=== PATIENT | female | born 1985 | race Caucasian/White ===

== ENCOUNTER 2018-06-15 01:27 | Emergency (ER) | payer SELFPAY ==
[~2018-06-15] VITALS: Ht 170.2 cm; Wt 72.6 kg
[2018-06-15 01:49] VITALS: Ht 170.2 cm; Wt 72.6 kg
[2018-06-15 06:40] LABS: BASOPHIL % 0.5 % (0-2); PLATELET COUNT 172 x10^3mcL (130-400); RED CELL DISTRIBUTION WIDTH 12.9 % (11.5-14.5)
[2018-06-15 06:56] LABS: CARBON DIOXIDE 26.4 mmol/L (21-32); CHLORIDE SERUM 102 mmol/L (98-107); CREATININE SERUM 0.5 mg/dL (0.6-1.0); GFR1 > 60 mL/min; GLUCOSE SERUM 90 mg/dL (74-106); POTASSIUM SERUM 4.1 mmol/L (3.5-5.1); SODIUM SERUM 137 mmol/L (136-145)
[2018-06-15 07:01] LABS: ALBUMIN 3.2 g/dL (3.4-5.0); ALKALINE PHOSPHATASE 72 U/L (46-116); ALT/SGPT 18 U/L (14-59); AMYLASE 66 U/L (25-115); AST/SGOT 12 U/L (15-37); BILIRUBIN TOTAL 0.3 mg/dL (0.20-1.00); LIPASE 76 IU/L (73-393); TOTAL PROTEIN, SERUM 7.1 g/dL (6.4-8.2)
[2018-06-15 08:29] VITALS: BP 94/54
== END 2018-06-15 08:29 | disposition home or self-care (01) ==
LOC: ED 01:27
PROVIDERS: Specialist
DX: O26.891 Other specified pregnancy related conditions, first trimester (principal); R10.30 Lower abdominal pain, unspecified; R10.2 Pelvic and perineal pain; Z90.89 Acquired absence of other organs
CPT/HCPCS: 36415; Q0092